=== PATIENT | male | born 2000 | race Caucasian/White ===

== ENCOUNTER 2023-09-27 22:51 | Emergency (ER) | payer SELFPAY ==
[~2023-09-27] VITALS: Ht 193 cm; Wt 82.0 kg
[2023-09-27 23:10] VITALS: O2SAT 97
[2023-09-27 23:49] LABS: BASOPHILS % 0.7 % (0.0-2.0); EOSINOPHILS % 3.5 % (0.0-5.0); HEMATOCRIT. 43.9 % (42.0-52.0); HEMOGLOBIN. 14.7 g/dL (14.0-18.0); LYMPHOCYTES % 33.4 % (20.0-50.0); MEAN CORPUSCULAR HEMOGLOBIN 30.5 pg (28.0-32.0); MEAN CORPUSCULAR HGB CONC 33.5 g/dL (31.0-37.0); MEAN CORPUSCULAR VOLUME 91.1 fL (80.0-94.0); MEAN PLATELET VOLUME 7.4 fl (7.4-10.4); MONOCYTES % 6.7 % (2.0-8.0); NEUTROPHILS % 55.7 % (40.0-76.0); PLATELET 239 x1000/uL (130-400); RED BLOOD CELL COUNT 4.82 mill/uL (4.7-6.1); RED CELL DISTRIBUTION WIDTH 13.5 % (11.6-14.6); WHITE BLOOD COUNT 7.9 x1000/uL (4.5-11.0)
[2023-09-27 23:58] LABS: PARTIAL THROMBOPLASTIN TIME 27.1 sec (23.4-31.0); PROTHROMBIN TIME 10.6 sec (9.6-11.0)
[2023-09-28 00:22] LABS: ALANINE AMINOTRANSFERASE 26 IU/L (10-49); ALBUMIN 4.7 g/dL (3.2-4.8); ASPARTATE AMINOTRANSFERASE 27 IU/L (<34); BILIRUBIN TOTAL 0.5 mg/dL (0.1-1.0); CARBON DIOXIDE 27 mEq/L (21-32); CHLORIDE 104 mEq/L (98-107); CREATININE 1.1 mg/dL (0.6-1.3); GLUCOSE 78 mg/dL (70-105); POTASSIUM 3.9 mEq/L (3.5-5.1); PROTEIN TOTAL 6.9 g/dL (6.0-8.3); SODIUM 140 mEq/L (136-145); TROPONIN I HIGH SENSITIVITY 5 ng/L (3.0-53); UREA NITROGEN BLOOD 25 mg/dL (9-23)
[2023-09-28] MEDS ORDERED: NAPR-1164 MT (02:54)
[2023-09-28] MEDS ORDERED: GUAI600T26 MT (02:54)
[2023-09-28] MEDS ORDERED: MED4 MT (02:54)
[2023-09-28] MEDS ORDERED: GUAIFENESIN 600MG ER TABLET PO ONE (03:00)
[2023-09-28] MEDS ORDERED: DEXAMETHASONE 10 MG/ML VIAL IM ONE (03:00)
[2023-09-28] MEDS ORDERED: KETOROLAC 60MG/2ML VIAL IM ONE (03:00)
[2023-09-28 03:33] VITALS: TEMP 98.4
[2023-09-28 03:43] VITALS: BP 127/64; PULSE 58; RESP 18
[2023-09-28 05:43] LABS: CLARITY URINE CLEAR (CLEAR); COLOR URINE YELLOW (YELLOW)
[2023-09-28 05:44] LABS: GLUCOSE URINE NEGATIVE (NEGATIVE); KETONES URINE NEGATIVE (NEGATIVE); NITRITE URINE NEGATIVE (NEGATIVE); OCCULT BLOOD URINE NEGATIVE (NEGATIVE); PROTEIN URINE NEGATIVE (NEGATIVE); SPECIFIC GRAVITY URINE 1.013 (1.005-1.030)
[2023-09-28 05:45] LABS: LEUKOCYTE ESTERASE URINE NEGATIVE (NEGATIVE)
== END 2023-09-28 03:46 | disposition home or self-care (01) ==
LOC: ER 22:51
DX: B34.9 Viral infection, unspecified (principal); H92.03 Otalgia, bilateral; Z98.890 Other specified postprocedural states; Z20.822 Contact with and (suspected) exposure to COVID-19
CPT/HCPCS: 80053; 81003; 85025; 85610; 85730; 84484; 36415; 71045; 93005; 99285; 87804 ×2; 96372; 87426; J1100; J1885; C9803; Z7610